=== PATIENT | female | born 1980 | race Caucasian/White ===

== ENCOUNTER 2018-06-03 08:48 | Emergency (ER) | payer OTHER ==
[2018-06-03] MEDS ORDERED: Sodium Chloride 0.9% 1000 ML 1,000 ML IV STA (09:07)
[2018-06-03 09:22] VITALS: O2SAT 98
[2018-06-03] MEDS ORDERED: Sodium Chloride 0.9% 1000 ML 1,000 ML ONE (09:23)
[2018-06-03 09:34] LABS: BASOPHIL % 0.6 % (0.0-0.4); Basophil (Absolute #) 0.03 (0-0.4); Eosinophil (Absolute #) 0.11 (0-0.5); Granulocyte Absolute (ANC) 3.24 (1.4-6.9); Granulocytes % 59.5 % (36.0-66.0); Hemoglobin 10.9 gm/dl (12.0-16.0); Lymphocyte (Absolute #) 1.72 (1.0-4.6); Lymphocytes % 31.6 % (24.0-44.0); Mean Cell Volume 86.3 fl (78-100); Mean Corpuscular Hemoglobin 26.1 pg (26-32); Mean Corpuscular Hgb Concent. 30.3 g/dl (32-36); Mean Platelet Volume 10.8 fl (6-9.5); Monocyte (Absolute #) 0.34 (0.0-1.3); Monocytes % 6.3 % (0.0-12.0); Platelet Count 308 K/mm3 (150-450); Red Blood Count 4.17 M/mm3 (4.1-5.4); Red Cell Distribution Width 13.7 % (11.5-14.0); White Blood Count 5.4 K/mm3 (4.0-10.5)
--- NOTE | 2018-06-03 09:36 | ERPHSYRPT ---
- History of Present Illness Time Seen by Provider: 06/03/18 08:53 Source: patient, family, old records Exam Limitations: no limitations Patient Subjective Stated Complaint: pt here for vaginal bleeding for 10 days now with blood clots, she states she is changing a pad or tampon every 2 hours, she also co weakness Triage Nursing Assessment: pt alert, resp easy,skin w/d/p. abd soft Physician History: patient here with because of 10 days heaavy vag bleeding ; feels weak and light headed; past hx of same as has been on xarelto for blood lcots for sevearl years 20 mg q daily- no recent changes- similar episode in 2017 with 3 months of bleeding; no pains; slight bleeding gums when brushes teeth but chronic; no syncope but feels as if may when bends over; no N&V ; no pain; no CP or SOb; feels like did in 2017- treated with Fe supplements- on Fe supplements now; no other changes; no fever Timing/Duration: week(s) (2 weeks) Severity: severe Modifying Factors: Improves With: other (meds xarelto) Associated Symptoms: No nausea, No vomiting, No abdominal pain, No shortness of breath, No heartburn, No cough, No chills, No chest pain, No fever, No loss of appetite, No rash, No syncope Allergies/Adverse Reactions: No Known Drug Allergies Allergy (Unverified 06/03/18 09:02) Home Medications: Ferrous Sulfate [Iron] 325 mg DAILY 06/03/18 [History] Metoprolol Succinate [Toprol Xl] 50 mg DAILY 06/03/18 [History] Rivaroxaban 10 mg Tablet [Xarelto 10 mg Tablet] 20 mg DAILY 06/03/18 [ History] Hx Tetanus, Diphtheria Vaccination/Date Given: Yes Hx Influenza Vaccination/Date Given: No Hx Pneumococcal Vaccination/Date Given: No Immunizations Up to Date: No - Review of Systems Constitutional: No Symptoms Eyes: No Symptoms Ears, Nose, & Throat: No Symptoms Respiratory: No Cough, No Cyanosis, No Dyspnea, No Dyspnea on Exertion (CAST) Cardiac: No Chest Pain, No Edema, No Palpitations, No Syncope Abdominal/Gastrointestinal: No Abdominal Pain, No Nausea, No Vomiting, No Diarrhea Genitourinary Symptoms: Vaginal Bleeding (heavy x 2 weeks; using more pads then usual and lasting longer- no cramps), No Dysuria, No Hematuria, No Incontinence , No Urinary Retention, No Flank Pain, No Menorrhagia Musculoskeletal: No Symptoms Skin: No Symptoms, Other (no incrased bruising) Neurological: No Symptoms Psychological: No Symptoms Endocrine: No Symptoms Hematologic/Lymphatic: No Symptoms Immunological/Allergic: No Symptoms - Past Medical History Pertinent Past Medical History: Yes Cardiac History: Coronary Artery Disease, Hypertension Respiratory History: Pulmonary Embolism (8 years ago unknown etiology) Other Medical History: PE - Past Surgical History Past Surgical History: Yes Female Surgical History: Tubal Ligation - Social History Smoking Status: Never smoker Exposure to second hand smoke: No Alcohol Use: None Drug Use: none Patient Lives Alone: No Significant Family History: no pertinent family hx - Female History Hx Last Menstrual Period: now Hx Now: No - Nursing Vital Signs Nursing Vital Signs: Initial Vital Signs Temperature 97.2 F 06/03/18 08:58 Pulse Rate 76 06/03/18 08:58 Respiratory Rate 16 06/03/18 08:58 Blood Pressure 101/73 06/03/18 08:58 O2 Sat by Pulse Oximetry 100 06/03/18 08:58 Pain Scale Pain Intensity 0 - Physical Exam General Appearance: mild distress, alert, anxiety Eye Exam: PERRL/EOMI, eyes nml inspection, other (pale conjunctiva; ) Ears, Nose, Throat Exam: normal ENT inspection, TMs normal, pharynx normal, moist mucous membranes Neck Exam: normal inspection, non-tender, supple, full range of motion, No JVD, No thyromegaly Respiratory Exam: normal breath sounds, lungs clear, airway intact, No chest tenderness, No respiratory distress, No crackles/rales, No rhonchi, No wheezing Cardiovascular Exam: regular rate/rhythm, normal heart sounds, normal peripheral pulses, capillary refill 2-3 sec, No murmur, No tachycardia, No edema , No pulse deficit Gastrointestinal/Abdomen Exam: soft, normal bowel sounds, No tenderness, No guarding, No rebound, No organomegaly Pelvic Exam: not done Rectal Exam: deferred Back Exam: normal inspection, normal range of motion, No CVA tenderness, No vertebral tenderness, No rash Extremity Exam: normal inspection, normal range of motion, No kim's sign, No pedal edema Neurologic Exam: No alert, No oriented x 3, No cooperative, No clinical evaluator II-XII nml as tested, No normal mood/affect (anxious), No nml cerebellar function, No nml station & gait Skin Exam: warm, dry, No normal color (pale), No rash, No petechiae, No embolic lesions, No ecchymosis SpO2 Interpretation: normal SpO2: 98 O2 Delivery: Room Air - Course Nursing assessment & vital signs reviewed: Yes Ordered Tests: Active Orders 24 hr Category Date Time Status IV Insertion STAT Care 06/03/18 09:07 Active Orthostatic Vital Signs STAT Care 06/03/18 09:09 Active Pulse Oximetry (ED) STAT Care 06/03/18 09:09 Active Re-Check Vital Signs STAT Care 06/03/18 09:07 Active BMP Stat Lab 06/03/18 09:25 Completed CBC W DIFF Stat Lab 06/03/18 09:25 Completed HCG QUALITATIVE,SERUM Stat Lab 06/03/18 09:25 Completed PROTIME WITH INR Stat Lab 06/03/18 09:30 Completed PTT Stat Lab 06/03/18 09:30 Completed Medication Summary Discontinued Medications Generic Name Dose Route Start Last Admin Trade Name Freq PRN Reason Stop Dose Admin Sodium Chloride 1,000 mls @ 999 mls/hr 06/03/18 09:07 06/03/18 09:25 Sodium Chloride 0.9% 1000 Ml IV 06/03/18 10:07 999 mls/hr .Q1H1M STA Administration Sodium Chloride Confirm 06/03/18 09:23 Sodium Chloride 0.9% 1000 Ml Administered 06/03/18 09:24 Dose 1,000 mls @ ud .ROUTE .K-MED ONE Lab/Rad Data: Laboratory Result Diagrams 06/03/18 09:25 06/03/18 09:25 Laboratory Results 06/03/18 06/03/18 06/03/18 Range/Units 09:30 09:25 09:25 WBC (4.0-10.5) K/mm3 RBC (4.1-5.4) M/mm3 Hgb (12.0-16.0) gm/dl Hct (35-47) % MCV (78-100) fl MCH (26-32) pg MCHC (32-36) g/dl RDW (11.5-14.0) % Plt Count (150-450) K/mm3 MPV (6-9.5) fl Gran % (36.0-66.0) % Eos # (Auto) (0-0.5) Absolute Lymphs (auto) (1.0-4.6) Absolute Monos (auto) (0.0-1.3) Lymphocytes % (24.0-44.0) % Monocytes % (0.0-12.0) % Eosinophils % (0.00-5.0) % Basophils % (0.0-0.4) % Absolute Granulocytes (1.4-6.9) Basophils # (0-0.4) PT 14.8 H (9.95-12.35) SECONDS INR 1.27 (0.8-3.0) APTT 30.8 (25.3-37.0) SECONDS Sodium (137-145) mmol/L Potassium (3.5-5.1) mmol/L Chloride (98-107) mmol/L Carbon Dioxide (22-30) mmol/L Anion Gap (5-15) MEQ/L BUN (7-17) mg/dL Creatinine (0.52-1.04) mg/dL Estimated GFR ML/MIN Glucose (74-106) mg/dL Calcium (8.4-10.2) mg/dL Serum , Qual NEGATIVE (Negative) ABO Group A Rh Factor POSITIVE Antibody Screen NEGATIVE (NEGATIVE) 06/03/18 06/03/18 Range/Units 09:25 09:25 WBC 5.4 (4.0-10.5) K/mm3 RBC 4.17 (4.1-5.4) M/mm3 Hgb 10.9 L (12.0-16.0) gm/dl Hct 36.0 (35-47) % MCV 86.3 (78-100) fl MCH 26.1 (26-32) pg MCHC 30.3 L (32-36) g/dl RDW 13.7 (11.5-14.0) % Plt Count 308 (150-450) K/mm3 MPV 10.8 H (6-9.5) fl Gran % 59.5 (36.0-66.0) % Eos # (Auto) 0.11 (0-0.5) Absolute Lymphs (auto) 1.72 (1.0-4.6) Absolute Monos (auto) 0.34 (0.0-1.3) Lymphocytes % 31.6 (24.0-44.0) % Monocytes % 6.3 (0.0-12.0) % Eosinophils % 2.0 (0.00-5.0) % Basophils % 0.6 (0.0-0.4) % Absolute Granulocytes 3.24 (1.4-6.9) Basophils # 0.03 (0-0.4) PT (9.95-12.35) SECONDS INR (0.8-3.0) APTT (25.3-37.0) SECONDS Sodium 139 (137-145) mmol/L Potassium 4.5 (3.5-5.1) mmol/L Chloride 104 (98-107) mmol/L Carbon Dioxide 25 (22-30) mmol/L Anion Gap 14.1 (5-15) MEQ/L BUN 11 (7-17) mg/dL Creatinine 0.79 (0.52-1.04) mg/dL Estimated GFR > 60.0 ML/MIN Glucose 106 (74-106) mg/dL Calcium 8.8 (8.4-10.2) mg/dL Serum , Qual (Negative) ABO Group Rh Factor Antibody Screen (NEGATIVE) reviewed - Progress Progress: improved (after IV fluids), re-examined (after fluids) Progress Note: 06/03/18 09:39 OSVS checked and mild drop in BP and inc in pulse; no syncope; will check labs and give IV fluids; at bedside; will monitor and recheck 06/03/18 10:05 CBC shows mild anemia h/h 10.9/36; plt 308 wnl; hcg neg; lytes bs renal fx ok; will continue IV fluids and recheck 06/03/18 10:26 INR 1.27; PT 14.8; PTT 30.8 continues to improve; at bedside 06/03/18 11:09 at bedside; she continues to improve clinically and subjectively; Dr Vazquez consulted and will DC home to follow up with lmd and continue Fe supplements; instructions given Discussed with : Taylor (consulted covering for Dr Byrne) Will see patient in: office Counseled pt/family regarding: lab results, diagnosis, need for follow-up - Departure Time of Disposition: 11:10 Departure Disposition: Home Clinical Impression: heavy medses secondary to meds, Anemia Clinical Impression: (Ruled Out): anemai Condition: Stable Critical Care Time: No Referrals: JOSE BYRNE [Primary Care Provider] - Instructions: Heavy Periods Additional Instructions: encourage fluids; rst; continue Iron supplements- see LMD Tuesday for RT work Follow-up with family doctor as directed. Call for appointment. Return if any problems. If you smoke please stop. Call or follow up with your family doctor for assistance if you need it to stop. Please wear your seatbelt when driving. Have a nice day. Thank you for allowing us to participate in your care today. :o) Dr Brandon Pace
[2018-06-03 09:46] LABS: ANION GAP 14.1 MEQ/L (5-15); BLOOD UREA NITROGEN 11 mg/dL (7-17); CHLORIDE 104 mmol/L (98-107); Calcium 8.8 mg/dL (8.4-10.2); Carbon Dioxide 25 mmol/L (22-30); Creatinine 1 0.79 mg/dL (0.52-1.04); Glucose 106 mg/dL (74-106); Potassium 4.5 mmol/L (3.5-5.1); SODIUM 139 mmol/L (137-145)
[2018-06-03 10:13] LABS: INR 1.27 (0.8-3.0); PROTIME 14.8 SECONDS (9.95-12.35)
[2018-06-03 10:14] LABS: ABO TYPING A; Antibody Screen NEGATIVE (NEGATIVE); RH TYPING POSITIVE
[2018-06-03 10:16] LABS: PTT 30.8 SECONDS (25.3-37.0)
[2018-06-03 11:15] VITALS: BP 102/53; PULSE 78
== END 2018-06-03 11:25 | disposition home or self-care (01) ==
LOC: ED 08:48
DX: D64.9 Anemia, unspecified (principal); R53.1 Weakness
CPT/HCPCS: 36415; 80048; 81025; 85025; 85610; 85730; 86850; 86900; 86901; 96360; 99284